=== PATIENT | male | born 1960 | race American Indian/Alaskan Native ===

== ENCOUNTER 2017-08-04 13:53 | Day surgery (SDC) | payer OTHER ==
[2017-08-04] MEDS ORDERED: XYLOCAINE 1% 20 mL ONE (14:09)
[2017-08-04] MEDS ORDERED: MARCAINE 0.5% 30 ML INFILTRATI ONE (14:21)
[2017-08-04] MEDS ORDERED: XYLOCAINE 1% 20 mL INFILTRATI ONE (14:50)
[2017-08-04 15:42] VITALS: BP 127/84
--- NOTE | 2017-08-10 14:43 | Operative Report ---
PREOPERATIVE DIAGNOSIS: Mass, left axilla. POSTOPERATIVE DIAGNOSIS: Mass, left axilla. PROCEDURE: Removal of mass, left axilla. ANESTHESIA: Local, I used 0.25% Marcaine. FINDINGS: The patient had a mass that is the axilla on the left side. This was about 3 x 2 x 2 cm, looked like an inclusion cyst. DESCRIPTION OF PROCEDURE: With the patient in supine position, prepped and draped in the usual fashion, I infiltrated the area with the above-mentioned anesthetic. I used about 4 mL for that purpose. Then, a spindle-shaped incision was performed over the mass deep subcutaneous tissue. Then, the mass was taken out in toto. We were well satisfied, we had good hemostasis. Then, the wound was closed in 1 layer using for that purpose 4-0 Vicryl interrupted and the bandage. The patient was then discharged home to be driven home by a friend of his. He is to call me if has any problem otherwise. The specimen was sent to pathology. JOB# [id number] ALEXIA/YA [place]
== END 2017-08-04 13:54 | disposition home or self-care (01) ==
LOC: OR 13:53
PROVIDERS: ATTEND Surgery
DX: L72.0 Epidermal cyst (principal); F17.210 Nicotine dependence, cigarettes, uncomplicated; Z95.5 Presence of coronary angioplasty implant and graft
CPT/HCPCS: 88304; 88307

== ENCOUNTER 2021-08-05 21:09 | Emergency (ER) | payer BC, OTHER ==
--- NOTE | 2021-08-06 04:24 | Emergency Department Report ---
ED ENT HPI - General Chief complaint: Dental/Oral Stated complaint: WEAKNESS,MOUTH ABCESS, CHILLS, AND FEVER Time Seen by Provider: 08/06/21 04:20 Source: patient Mode of arrival: Ambulatory Limitations: No Limitations - History of Present Illness Initial comments: Patient is a 61-year-old male presents emergency room with complaints of left lower dental pain over the last few days. States he has had episodes of feeling hot and cold but not actually running a fever. He denies any difficulty swallowing, shortness of breath, vomiting. Patient states he has an upcoming appointment with a dentist on 08/18/2021. No allergies to medications. - Related Data Previous Rx's Medication Instructions Recorded Last Taken Type Chlorhexidine Mouthwash [Peridex] 15 ml MM BID #1 bottle 08/06/21 Unknown Rx Naproxen 375 mg PO BID PRN #14 tab 08/06/21 Unknown Rx Penicillin V Potassium 500 mg PO QID 7 Days #28 tab 08/06/21 Unknown Rx Allergies Allergy/AdvReac Type Severity Reaction Status Date / Time No Known Allergies Allergy Unverified 08/04/17 14:14 ED Dental HPI - General Chief complaint: Dental/Oral Stated complaint: WEAKNESS,MOUTH ABCESS, CHILLS, AND FEVER Time Seen by Provider: 08/06/21 04:20 Source: patient Mode of arrival: Ambulatory Limitations: No Limitations - Related Data Previous Rx's Medication Instructions Recorded Last Taken Type Chlorhexidine Mouthwash [Peridex] 15 ml MM BID #1 bottle 08/06/21 Unknown Rx Naproxen 375 mg PO BID PRN #14 tab 08/06/21 Unknown Rx Penicillin V Potassium 500 mg PO QID 7 Days #28 tab 08/06/21 Unknown Rx Allergies Allergy/AdvReac Type Severity Reaction Status Date / Time No Known Allergies Allergy Unverified 08/04/17 14:14 ED Review of Systems ROS: Stated complaint: WEAKNESS,MOUTH ABCESS, CHILLS, AND FEVER Other details as noted in HPI Comment: All other systems reviewed and negative ED Past Medical Hx - Past Medical History Previous Medical History?: No - Surgical History Past Surgical History?: Yes Hx Coronary Stent: Yes (2000 [2] HEART STENTS) - Social History Smoking Status: Current Every Day Smoker - Medications Home Medications: Home Medications Medication Instructions Recorded Confirmed Last Taken Type Chlorhexidine Mouthwash [Peridex] 15 ml MM BID #1 bottle 08/06/21 Unknown Rx Naproxen 375 mg PO BID PRN #14 tab 08/06/21 Unknown Rx Penicillin V Potassium 500 mg PO QID 7 Days #28 tab 08/06/21 Unknown Rx ED Physical Exam - General Limitations: No Limitations General appearance: alert, in no apparent distress - Head Head exam: Present: atraumatic, normocephalic - Eye Eye exam: Present: normal appearance - ENT ENT exam: Present: mucous membranes moist, other (several missing teeth, there is mild edema and erythema of the left lower gumline, no fluctuance, no facial edema, uvula is midline, no uvula edema or deviation, no trismus, no tongue elevation, no muffled voice, no submandibular edema ) - Respiratory Respiratory exam: Absent: respiratory distress, accessory muscle use - Neurological Exam Neurological exam: Present: alert, oriented X3 - Psychiatric Psychiatric exam: Present: normal affect, normal mood - Skin Skin exam: Present: warm, dry, intact ED Course Vital Signs 08/06/21 08/06/21 00:48 05:00 Temperature 98.6 F 98.5 F Pulse Rate 47 L 67 Respiratory 18 20 Rate Blood Pressure 146/92 Blood Pressure 136/81 [Right] O2 Sat by Pulse 97 98 Oximetry ED Medical Decision Making - Lab Data Vital Signs 08/06/21 08/06/21 00:48 05:00 Temperature 98.6 F 98.5 F Pulse Rate 47 L 67 Respiratory 18 20 Rate Blood Pressure 146/92 Blood Pressure 136/81 [Right] O2 Sat by Pulse 97 98 Oximetry - Medical Decision Making Patient is a 61-year-old male presents emergency room with complaints of left lower dental pain over the last few days. States he has had episodes of feeling hot and cold but not actually running a fever. He denies any difficulty swallowing, shortness of breath, vomiting. Patient states he has an upcoming appointment with a dentist on 08/18/2021. No allergies to medications. Initial vitals with some bradycardia which improved to normal upon repeat. On exam:several missing teeth, there is mild edema and erythema of the left lower gumline, no fluctuance, no facial edema, uvula is midline, no uvula edema or deviation, no trismus, no tongue elevation, no muffled voice, no submandibular edema . Examination appears consistent with dental carries and gingivitis. No clinical signs of significant dental abscess, facial abscess, facial cellulitis, Ludwigs at this time. Patient given prescription for medication. Advised patient Please take medication as prescribed. Please follow-up with your dentist. Return to emergency room for any new or worsening symptoms. Critical care attestation.: If time is entered above; I have spent that time in minutes in the direct care of this critically ill patient, excluding procedure time. ED Disposition Clinical Impression: Dental caries, Gingivitis Disposition: HOME / SELF CARE / HOMELESS Is pt being admited?: No Does the pt Need Aspirin: No Condition: Stable Additional Instructions: Please take medication as prescribed. Please follow-up with your dentist. Return to emergency room for any new or worsening symptoms. Prescriptions: Naproxen 375 mg PO BID PRN #14 tab PRN Reason: pain Penicillin V Potassium 500 mg PO QID 7 Days #28 tab Chlorhexidine Mouthwash [Peridex] 15 ml MM BID #1 bottle Referrals: PRIMARY CARE,MD [Primary Care Provider] - 3-5 Days your, dentist [Other] - 3-5 Days Forms: Work/School Release Form(ED) Time of Disposition: 04:23 Print Language: GHANAIAN
[2021-08-06 05:24] VITALS: BP 136/81
== END 2021-08-06 05:00 | disposition home or self-care (01) ==
LOC: ED 21:09
DX: K02.9 Dental caries, unspecified (principal); K05.10 Chronic gingivitis, plaque induced; Z98.890 Other specified postprocedural states; F17.200 Nicotine dependence, unspecified, uncomplicated
CPT/HCPCS: 99282